=== PATIENT | female | born 1995 | race Caucasian/White ===

== ENCOUNTER 2019-07-26 12:01 | Emergency (ER) | payer MEDICAID, OTHER ==
[~2019-07-26] VITALS: Ht 152.4 cm; Wt 51.7 kg
[2019-07-26 12:35] VITALS: BP 132/71
== END 2019-07-26 14:30 | disposition home or self-care (01) ==
LOC: ER 12:11
DX: J06.9 Acute upper respiratory infection, unspecified (principal); R51 Headache
CPT/HCPCS: 71046

== ENCOUNTER 2022-07-20 10:40 | Emergency (ER) | payer MEDICAID ==
[~2022-07-20] VITALS: Ht 154.9 cm; Wt 56.0 kg
[2022-07-20 11:22] LABS: Urine WBC None Seen /hpf (0 - 5)
[2022-07-20 11:54] LABS: Urine Bacteria NONE SEEN /hpf (None Seen); Urine Blood 1+ /uL (Negative); Urine Mucus FEW (None Seen); Urine Specific Gravity 1.032 (1.001-1.035)
[2022-07-20 11:58] LABS: Basophils # (auto) 0 10 ^3/uL (0-0.2); Basophils % (auto) 0.2 % (0.0-2.0); Eosinophils # (auto) 0 10 ^3/uL (0-0.8); Hematocrit 39.2 % (36.0-46.0); Hemoglobin 13.5 g/dL (12.2-16.2); Lymphocytes # (auto) 0.7 10 ^3/uL (0.4-5.4); Lymphocytes % (auto) 5.5 % (10.0-50.0); Mean Corpuscular Hemoglobin 30.5 pg (28.0-32.0); Mean Corpuscular Hgb Conc. 34.5 g/dL (32.0-36.0); Mean Corpuscular Volume 88.3 fL (80.0-100.0); Monocytes # (auto) 0.5 10 ^3/uL (0-1.3); Neutrophils # (auto) 12.1 10 ^3/uL (1.6-8.6); Neutrophils % (auto) 90.3 % (37.0-80.0); Red Blood Cells 4.45 10^6/uL (4.0-5.20); Red Cell Distribution Width 12.8 % (11.8-14.3); White Blood Cell 13.4 10^3/uL (4.4-10.8)
[2022-07-20 12:11] LABS: Potassium 4.5 mmol/L (3.5-5.1)
[2022-07-20 12:12] LABS: Amphetamine Screen, Urine NEGATIVE (NEGATIVE); Barbiturate Scree,Urine NEGATIVE (NEGATIVE); Benzodiazephine Screen, Urine NEGATIVE (NEGATIVE); Cannabinoid Screen, Urine NEGATIVE (NEGATIVE); Cocaine Screen, Urine NEGATIVE (NEGATIVE); Opiate Scree,Urine NEGATIVE (NEGATIVE)
[2022-07-20 12:16] LABS: Albumin 4.2 g/dL (3.4-5.0); BUN/Creatinine Ratio 17.2; Calcium 9.5 mg/dL (8.5-10.1)
[2022-07-20 12:19] LABS: Bilirubin, Total 0.5 mg/dL (0.2-1.0); Total Protein 8.2 g/dL (6.4-8.2)
[2022-07-20 12:46] LABS: Phencyclidine Screen, Urine NEGATIVE (NEGATIVE)
[2022-07-20 12:47] LABS: Alcohol, Urine < 3.0 mg/dL (0-10)
[2022-07-20] MEDS ORDERED: SODIUM CHLORIDE 0.9% 1,000 ML IVB ONE (13:45)
[2022-07-20] MEDS ORDERED: cefTRIAXone 1GM/50ML D5W 50 ML IV ONE (13:45)
[2022-07-20] MEDS ORDERED: CEPH-510 PO ×2 (15:35→17:34)
[2022-07-20 18:29] VITALS: BP 124/81
== END 2022-07-20 18:31 | disposition home or self-care (01) ==
LOC: ER 10:43
DX: R10.31 Right lower quadrant pain (principal); R11.2 Nausea with vomiting, unspecified; Z88.1 Allergy status to other antibiotic agents
CPT/HCPCS: 36415; 74176; 80053; 80307; 81001; 83690; 85025; 96365; 99284; J0696; J7030